=== PATIENT | female | born 1990 | race Two or more races ===

== ENCOUNTER 2021-09-24 17:35 | Emergency (ER) | payer OTHER ==
[~2021-09-24] VITALS: Ht 147.3 cm; Wt 64.9 kg
[2021-09-24] MEDS ORDERED: ONDANSETRON HCL/PF 4 MG/2 ML VIAL ONE (18:28)
[2021-09-24] MEDS ORDERED: KETOROLAC TROMETHAMINE INJ 30 MG/ML VIAL IV ONE (18:30)
[2021-09-24] MEDS ORDERED: ONDANSETRON HCL/PF 4 MG/2 ML VIAL IVP ONE (18:30)
[2021-09-24] MEDS ORDERED: IV NS 0.9% 1,000 ML BAG IV ONE (18:30)
--- NOTE | 2021-09-24 18:45 | NUR ---
FOLLOWED UP WITH LAB ABOUT BLOOD TEST RESULTS. PER MUSIC RESEARCHER, THEY JUST RECEIVED THE SPECIMEN.
[2021-09-24 19:04] LABS: CARBON DIOXIDE 29 mmol/L (21-32); CHLORIDE 104 mmol/L (98-107); CREATININE 0.9 mg/dL (0.6-1.3); GLUCOSE 89 mg/dL (74-106); POTASSIUM 3.7 mmol/L (3.5-5.1); SODIUM SERUM 139 mmol/L (136-145); UREA NITROGEN, BLOOD 8 mg/dL (7-18)
[2021-09-24 19:09] LABS: ALANINE AMINOTRANSFERASE 118 U/L (12-78); ALBUMIN 3.1 g/dL (3.4-5.0); ALKALINE PHOSPHATASE 49 U/L (46-116); ASPARTATE AMINOTRANSFERASE 76 U/L (15-37); BILIRUBIN,DIRECT 0.1 mg/dL (0.0-0.2); BILIRUBIN,TOTAL 0.2 mg/dL (0.2-1.0); LIPASE 72 U/L (73-393); TOTAL PROTEIN, SERUM 7.7 g/dL (6.4-8.2)
[2021-09-24 19:11] LABS: BILIRUBIN,URINE SMALL (NEGATIVE); COLOR,URINE YELLOW (YELLOW); LEUKOCYTE ESTERASE ,URINE NEGATIVE (NEGATIVE); NITRITE, URINE NEGATIVE (NEGATIVE); PH,URINE 5.5 (5.0-8.0); PROTEIN,URINE NEGATIVE (NEGATIVE); UGLUCOSE NEGATIVE (NEGATIVE); UROBILINOGEN,URINE 0.2 EU/dL (0.2)
[2021-09-24] MEDS ORDERED: KETOROLAC TROMETHAMINE 15 MG/ML VIAL ONE (19:16)
--- NOTE | 2021-09-24 19:23 | NUR ---
PT TAKEN TO RADIOLOGY
--- NOTE | 2021-09-24 19:36 | NUR ---
RECEIVED PATIENT [id number]. CAME WITH CC OF ABDOMINAL PAIN. PATIENT JUST RECENTLY GIVEN TORADOL AFTER - TEST. WITH PERIPHERAL LINE ON RIGHT AC G20. PATIENT IS BEING WHEELED TO CT DEPT.
[2021-09-24 19:59] LABS: BASOPHILS % (AUTO) 0.3 % (0.0-2.0); EOSINOPHILS % (AUTO) 0.2 % (0.0-6.0); HEMATOCRIT 29 % (33-45); HEMOGLOBIN 8.7 g/dL (11.5-14.8); LYMPHOCYTES # (AUTO) 3.7 K/uL (0.8-4.8); LYMPHOCYTES % (AUTO) 63.9 % (20.0-44.0); MEAN CORPUSCULAR HGB CONC 30 g/dl (31.0-36.0); MEAN CORPUSCULAR VOLUME 64 fL (82-100); MONOCYTES # (AUTO) 0.4 K/uL (0.1-1.30); MONOCYTES % (AUTO) 6.8 % (2.0-12.0); NEUTROPHILS # (AUTO) 1.7 K/uL (1.8-8.9); NEUTROPHILS % (AUTO) 28.8 % (43.0-81.0); PLATELET COUNT (AUTO) 347 K/uL (150-450); RED BLOOD CELL COUNT(AUTO) 4.49 MIL/uL (4.0-5.2); WHITE BLOOD COUNT (AUTO) 5.9 K/uL (4.3-11.0)
[2021-09-24 20:05] LABS: BACTERIA,URINE 1+ /HPF (None Seen); RBC,URINE 51-80 /HPF (0-2); WBC,URINE 0-2 /HPF (0-3)
[2021-09-24 20:06] LABS: URINE AMORPHOUS URATE Moderate /HPF (None Seen)
[2021-09-24] MEDS ORDERED: ONDA4TAB5 PO (21:19)
--- NOTE | 2021-09-24 21:43 | NUR ---
PATIENT ADVICED ADMISSION BUT OPTED TO DO AMA BECAUSE SHE HAS A TODDLER AT HOME AND SHE WAS NOT PREPARED TO STAY. WAIVER SIGNED. INSTRUCTIONS GIVEN TO PATIENT.
--- NOTE | 2021-09-24 21:44 | NUR ---
IV CANNULA REMOVED
[2021-09-24 21:46] VITALS: BP 90/58
[2021-09-24 21:53] LABS: BAND % (MANUAL) 1 % (0.0-5.0); LYMPHOCYTES % (MANUAL) 47 % (16-48); MONOCYTES % (MANUAL) 8 % (0-11.0); NEUTROPHILS % (MANUAL) 39 (42-76); REACTIVE LYMPHOCYTES 5 % (0-0)
== END 2021-09-24 21:47 | disposition left against medical advice (07) ==
LOC: ER 17:47
DX: R10.13 Epigastric pain (principal); R11.0 Nausea; K59.09 Other constipation; D50.9 Iron deficiency anemia, unspecified; R74.01 Elevation of levels of liver transaminase levels; Z90.49 Acquired absence of other specified parts of digestive tract
CPT/HCPCS: 99285; 74176; 96374; 71045; 96361; 96375; 93005; 85025; 80048; 83690; 80076; 84703; 81001; 36415; 84484; 85007; J2405; J7030; J1885